=== PATIENT | male | born 1985 | race Caucasian/White ===

== ENCOUNTER 2017-06-26 08:56 | Day surgery (SDC) | payer OTHER ==
[2017-06-25 09:11] VITALS: BMI 31.9
[~2017-06-26 08:56] MED LIST: LACTATED RINGERS 1,000 ML IV SCH
[2017-06-26 11:21] VITALS: RESP 16; TEMP 97
[2017-06-26] MEDS ORDERED: LIDOCAINE 1% INJ 10MG/ML (20 ML MDV) ONE (12:09)
[2017-06-26] MEDS ORDERED: PROPOFOL 10 MG/ML 20 ML VIAL IV ONE (12:09)
--- NOTE | 2017-06-26 12:24 | P.PCN ---
Date of Procedure: 06/26/17 Preoperative Diagnosis: Postoperative Diagnosis: Procedure(s) Performed: BRIEF HISTORY: Patient is a 31-year-old pleasant white male, scheduled for an elective colonoscopy as a part of evaluation of chronic diarrhea for the last 1 year duration. He has bowel movement anywhere from 5-6 a day which are loose to watery in consistency but denies any blood or mucus in the stool. PROCEDURE PERFORMED: Colonoscopy with biopsy. PREOPERATIVE DIAGNOSIS: Chronic diarrhea. IV sedation per Anesthesia. PROCEDURE: After informed consent was obtained, the patient, was brought into the endoscopy unit. IV sedation was administered by Anesthesia under continuous monitoring. Digital rectal examination was normal. Small external hemorrhoids seen. Initially the Olympus CF-160 flexible video colonoscope was then inserted in the rectum, gradually advanced into the cecum without any difficulty. Careful examination was performed as the scope was gradually being withdrawn. Ileocecal valve and the appendiceal orifice were visualized and appeared normal. Prep was excellent. Terminal ileum was intubated and 20 cm visualized and appeared normal. A small 5 mm cecal polyp seen which was removed by biopsy. The rest of the mucosa of the cecum, ascending colon, transverse colon, descending colon, sigmoid colon, and rectum appeared normal. Random biopsies were done from the terminal ileum, ascending and descending colon to rule out Dominic scope/collagenous colitis. Retroflexion was performed in the rectum and no lesions were seen. The patient tolerated the procedure well. IMPRESSION: 5 mm cecal polyp status post removal by biopsy. Rest of the colon appeared normal. Small external hemorrhoids noted. RECOMMENDATIONS: Findings of this examination were discussed with the patient as well as his family. He was advised to follow with the biopsy results. He can use [id number] Imodium as needed for her symptoms. Implants: Indications for Procedure: Operative Findings: Description of Procedure:
[2017-06-26 12:53] VITALS: BP 117/80; PULSE 49
== END 2017-06-26 13:27 | disposition home or self-care (01) ==
LOC: ORWHC2ENDO 08:56
PROVIDERS: ATTEND Internal Medicine Gastroenterology
DX: K63.5 Polyp of colon (principal); K64.4 Residual hemorrhoidal skin tags; K52.9 Noninfective gastroenteritis and colitis, unspecified
CPT/HCPCS: 45380; 88305